=== PATIENT | male | born 1990 | race Caucasian/White ===

== ENCOUNTER 2017-08-12 08:43 | Emergency (ER) | payer BC, OTHER ==
[~2017-08-12] VITALS: Wt 81.8 kg
[2017-08-12] MEDS ORDERED: KETOROLAC 30 MG INJ IV STA (09:52)
[2017-08-12] MEDS ORDERED: DIAZEPAM 5 MG/ML SYG IV ONE (10:00)
--- NOTE | 2017-08-12 11:29 | RADRPT ---
PROCEDURE: XR thoracic Spine. CLINICAL INDICATION: Back pain TECHNIQUE: AP, lateral and swimmer's views of the thoracic spine were obtained. COMPARISON: No prior studies are available for comparison. FINDINGS: There is normal vertebral mineralization and alignment. No acute fracture or subluxation is seen. The disc spaces are normal in appearance. The posterior elements are unremarkable. The soft tissues appear normal. RPTAT: AA IMPRESSION: Unremarkable thoracic spine. .Juan Alberto Evangelista MD, MD Date Time Electronically viewed and signed by .Juan Alberto Evangelista MD, on 08/12/2017 11:29 .S/
--- NOTE | 2017-08-12 11:30 | RADRPT ---
PROCEDURE: XR Lumbar Spine. CLINICAL INDICATION: back pain TECHNIQUE: AP, lateral and cone-down lateral view of the lumbar spine were obtained. COMPARISON: No prior studies are available for comparison. FINDINGS: There is normal vertebral mineralization and alignment. No fracture or subluxation is seen. The disc spaces are normal in appearance. The posterior elements are unremarkable. The soft tissues appear normal. RPTAT: AA IMPRESSION: Unremarkable lumbar spine. .Juan Alberto Evangelista MD, MD Date Time Electronically viewed and signed by .Juan Alberto Evangelista MD, MD on 08/12/2017 11:29 .S/
[2017-08-12] MEDS ORDERED: ONDANSETRON 4 MG INJ IV STA (11:49)
[2017-08-12] MEDS ORDERED: morphine 4 MG/ML VIAL IV STA (11:49)
[2017-08-12 12:20] LABS: BASOPHILS % 0.6 % (0.0-2.0); EOSINOPHILS % 0.5 % (0.0-7.0); HEMATOCRIT 41.9 % (42.0-52.0); HEMOGLOBIN 14.6 g/dl (14.0-18.0); LYMPHOCYTES # 2.3 10^3/ul (0.8-2.9); LYMPHOCYTES % 37.9 % (15.0-51.0); MEAN CORPUSCULAR HEMOGLOBIN 31.1 pg (29.0-33.0); MEAN CORPUSCULAR HGB CONC 34.8 g/dl (32.0-37.0); MEAN CORPUSCULAR VOLUME 89.3 fl (82.0-101.0); MEAN PLATELET VOLUME 9.8 fl (7.4-10.4); MONOCYTE # 0.3 10^3/ul (0.3-0.9); MONOCYTES % 4.7 % (0.0-11.0); NEUTROPHIL # 3.5 10^3/ul (1.6-7.5); PLATELET COUNT 244 10^3/UL (140-415); RED BLOOD COUNT 4.69 10^6/ul (4.70-6.10); RED CELL DISTRIBUTION WIDTH 11.8 % (11.5-14.5); WHITE BLOOD COUNT 6.2 10^3/ul (4.8-10.8)
[2017-08-12 12:45] LABS: ALBUMIN 4.7 g/dl (3.3-4.9); ALBUMIN/GLOBULIN RATIO 1.56; BILIRUBIN,INDIRECT 0.7 mg/dl (0-1.1); BILIRUBIN,TOTAL 0.7 mg/dl (0.2-1.3); CALCIUM 9.6 mg/dl (8.4-10.2); CREATININE 0.95 mg/dl (0.61-1.24); POTASSIUM 4.5 mmol/L (3.5-5.1); TOTAL PROTEIN 7.7 g/dl (6.1-8.1)
[2017-08-12] MEDS ORDERED: IOHEXOL 300MG/ML 150 ML BTL ONE (13:09)
--- NOTE | 2017-08-12 13:46 | RADRPT ---
PROCEDURE: CT Chest, Abdomen and Pelvis with contrast. CLINICAL INDICATION: Pain. TECHNIQUE: Multiple contiguous axial CT images of the chest, abdomen and pelvis were obtained foll owing the administration of 100 cc of Omnipaque-300. Coronal and sagittal reconstructions were also performed. CTDIvol (mGy): 13.93; Total Exam DLP (mGy-cm): 1125.91. One or more of the following dose reduction techniques were utilized: - Automated exposure control. - Adjustment of the mA and/or kV according to patient size. - Use of iterative reconstruction technique. COMPARISON: None. FINDINGS: Limited imaging of the lower neck is unremarkable. The heart is not enlarged. There is no pericardial effusion. There is no mediastinal, hilar or axill xiang lymphadenopathy. The thoracic aorta is normal in caliber. The pulmonary arteries are normal in c aliber. There is no pulmonary consolidation, pleural effusion or pulmonary nodule. The tracheobronchial tree is normal in caliber. The liver and spleen are homogeneous in enhancement. The gallbladder, pancreas and adrenal glands a re unremarkable. The kidneys are symmetric in size and enhancement. There is no hydronephrosis or abnormal perinephr ic inflammation. There are no ureteral stones. The abdominal aorta is normal in caliber. There is no periaortic / retroperitoneal lymphadenopathy. The stomach and small and large intestines are unremarkable. The appendix is normal. There are no focal inflammatory changes of the mesentery. There is no mesenteric lymphadenopathy. There is no a scites. The bladder, prostate and seminal vesicles are unremarkable. There is no free pelvic fluid. There i s no pelvic sidewall or inguinal lymphadenopathy. Skeletal structures are unremarkable. Body wall soft tissues are unremarkable. IMPRESSION: No evidence of mass, lymphadenopathy or acute inflammatory pathology of the chest, abdomen or pelvis . RPTAT: AAQQ .Lakshmi Bonilla MD, MD Date Time Electronically viewed and signed by .Lakshmi Bonilla MD, MD on 08/12/2017 13:46 .T/
[2017-08-12] MEDS ORDERED: IBUP-1542 PO (14:12)
[2017-08-12] MEDS ORDERED: HYDR-906 PO (14:12)
--- NOTE | 2017-08-12 14:28 | ERD ---
ER Documentation Chief Complaint Date/Time DATE: 08/12/17 Chief Complaint Back spasms HPI The patient is a 27-year-old male who presents to the Emergency Department with complaint of back spasms and pain since last night. The patient reports that his pain was [id number], localized to the paraspinal region of the thoracic back, radiating distally down to the lumbar back. The patient took a dose of Advil last night, with only minimal relief. Upon waking up this morning , his pain had worsened. The pain is constant, worse with movement, palpation and ambulation, and is mildly improved at rest. He reports that his pain feels as if his back is "tight" and "with spasms." He rates his current pain as 9/10. The patient denies a history of similar symptoms in the past. Denies recent falls, injury, trauma to the back. Denies recent heavy lifting or new exercise. Denies involvement in motor vehicle collision or any assault. Denies any bowel or bladder disturbances, urinary retention or lower extremity numbness, paresthesias or weakness. Denies saddle-region anesthesia. Denies fevers, sweats , chills, nausea, vomiting, diarrhea, dysuria, hematuria, flank pain. Denies history of IV drug use or immunocompromised state. Denies any steroid use. No other complaints at this time. ROS All systems reviewed and are negative except as per history of present illness. Medications Home Meds Active Scripts Ibuprofen* (Motrin*) 600 Mg Tab, 600 MG PO Q6, #30 TAB Prov:PHOENIX ALFRED PA-C 08/12/17 Hydrocodone/Acetaminophen (Weikert 5-325 Tablet) 1 Each Tablet, 1 EACH PO Q6, #10 TAB Prov:PHOENIX ALFRED PA-C 08/12/17 PMhx/Soc Medical and Surgical Hx: pt denies Medical Hx, pt denies Surgical Hx Hx Alcohol Use: No Hx Substance Use: No Hx Tobacco Use: No Physical Exam Vitals Vital Signs Date Time Temp Pulse Resp B/P Pulse Ox O2 Delivery O2 Flow Rate FiO2 08/12/17 08:47 97.0 82 20 138/74 98 Physical Exam GENERAL: Well-developed, well-nourished, in mild distress secondary to pain. HEENT: Head is normocephalic, atraumatic. No scleral pallor or icterus. Pupils equal, round and reactive to light. Extraocular movements intact. Conjunctiva pink. Moist mucous membranes. NECK: Supple. No masses, no tenderness, no lymphadenopathy. Trachea midline. No nuchal rigidity. Full range of motion. RESPIRATORY: Lungs are clear to auscultation bilaterally. Equal breath sounds. Normal expiratory effort. CARDIOVASCULAR: Regular rate and rhythm. S1 and S2 normal. GASTROINTESTINAL: Abdomen is soft, nontender, and nondistended. No guarding, no rebound tenderness. Normal bowel sounds. No pulsatile abdominal masses. FLANK: No CVA tenderness, no mass or swelling. BACK: Bilateral paraspinal muscle tenderness, with palpable spasm noted. No midline tenderness. No step offs. No crepitus. No deformities. Equal strength to lower extremities. No foot drop. No saddle-region anesthesia. EXTREMITIES: No clubbing, cyanosis, or edema. Normal skin perfusion. Full range of motion of both the upper and lower extremities bilaterally. Muscle tone is normal. No focal swelling or erythema. Distal pulses are palpable, 2+ bilaterally. Capillary refill is less than 2 seconds. NEUROLOGIC: The patient is alert, awake, and oriented x 3. No focal neurologic deficits. Cranial nerves are grossly intact. Motor and sensation grossly intact. INTEGUMENT: Skin is clean, dry and intact. No rashes, lesions or petechiae present. Normal turgor. PSYCHIATRIC: Appropriate; Cooperative. Result Diagram: 08/12/17 1207 08/12/17 1207 Results 24 hrs Laboratory Tests Test 08/12/17 12:07 White Blood Count 6.210^3/ul Red Blood Count 4.6910^6/ul Hemoglobin 14.6g/dl Hematocrit 41.9% Mean Corpuscular Volume 89.3fl Mean Corpuscular Hemoglobin 31.1pg Mean Corpuscular Hemoglobin Concent 34.8g/dl Red Cell Distribution Width 11.8% Platelet Count 72698^3/UL Mean Platelet Volume 9.8fl Neutrophils % 56.0% Lymphocytes % 37.9% Monocytes % 4.7% Eosinophils % 0.5% Basophils % 0.6% Nucleated Red Blood Cells % 0.0/100WBC Neutrophils # 3.510^3/ul Lymphocytes # 2.310^3/ul Monocytes # 0.310^3/ul Eosinophils # 0.010^3/ul Basophils # 0.010^3/ul Nucleated Red Blood Cells # 0.010^3/ul Sodium Level 145mmol/L Potassium Level 4.5mmol/L Chloride Level 106mmol/L Carbon Dioxide Level 28mmol/L Anion Gap 16 Blood Urea Nitrogen 15mg/dl Creatinine 0.95mg/dl Glucose Level 81mg/dl Calcium Level 9.6mg/dl Total Bilirubin 0.7mg/dl Direct Bilirubin 0.00mg/dl Indirect Bilirubin 0.7mg/dl Aspartate Amino Transf (AST/SGOT) 19IU/L Alanine Aminotransferase (ALT/SGPT) 39IU/L Alkaline Phosphatase 80IU/L Total Protein 7.7g/dl Albumin 4.7g/dl Globulin 3.00g/dl Albumin/Globulin Ratio 1.56 Lipase 71U/L Current Medications Medications (Trade) Dose Ordered Sig/Daniel Route PRN Reason Start Time Stop Time Status Last Admin Dose Admin Diazepam (Valium) 5 mg ONCE ONCE IV 08/12/17 10:00 08/12/17 10:01 DC 08/12/17 10:40 Ketorolac Tromethamine (Toradol) 30 mg ONCE STAT IV 08/12/17 09:52 08/12/17 09:53 DC 08/12/17 10:40 Morphine Sulfate (morphine) 4 mg ONCE STAT IV 08/12/17 11:49 08/12/17 11:51 DC 08/12/17 12:17 Ondansetron HCl (Zofran Inj) 4 mg ONCE STAT IV 08/12/17 11:49 08/12/17 11:51 DC 08/12/17 12:17 Iohexol (Omnipaque 300mg/ ml) 150 ml STK-MED ONCE .ROUTE 08/12/17 13:09 08/12/17 13:10 DC 08/12/17 13:25 Procedures/MDM ED COURSE: The patient was stable throughout ED course. I kept the patient informed of laboratory and diagnostic imaging results throughout the ED course. IV access established by nursing staff. 30 mg Toradol IV and 5 mg Diazepam IV ordered. X-ray imaging performed. On reevaluation, the patient reports no new complaints, but states that while his pain has slightly decreased, he continues to be experiencing a lot of discomfort. The case was reviewed and discussed with Dr. Aceves, ED supervising physician, who evaluated the patient bedside. He agree with the plan of care and recommends obtaining laboratory testing and CT imaging. He also recommends administration of Morphine and Zofran. Laboratory testing, CT imaging performed. On reevaluation, the patient reports no new complaints, and much decreased pain. He states that he is very hungry and would like to be discharged home, as he is feeling improved. Dr. Aceves recommends discharge home. DIAGNOSTIC TESTS AND INTERPRETATION: PROCEDURE: XR thoracic Spine. CLINICAL INDICATION: Back pain TECHNIQUE: AP, lateral and swimmer's views of the thoracic spine were obtained. COMPARISON: No prior studies are available for comparison. FINDINGS: There is normal vertebral mineralization and alignment. No acute fracture or subluxation is seen. The disc spaces are normal in appearance. The posterior elements are unremarkable. The soft tissues appear normal. IMPRESSION:Unremarkable thoracic spine. .Juan Alberto Evangelista MD, MD Date Time Electronically viewed and signed by .Juan Alberto Evangelista MD, MD on 08/12/2017 11: 29 PROCEDURE: XR Lumbar Spine. CLINICAL INDICATION: back pain TECHNIQUE: AP, lateral and cone-down lateral view of the lumbar spine were obtained. COMPARISON: No prior studies are available for comparison. FINDINGS: There is normal vertebral mineralization and alignment. No fracture or subluxation is seen. The disc spaces are normal in appearance. The posterior elements are unremarkable. The soft tissues appear normal. IMPRESSION:Unremarkable lumbar spine. .Juan Alberto Evangelista MD, MD Date Time Electronically viewed and signed by .Juan Alberto Evangelista MD, MD on 08/12/2017 11: 29 PROCEDURE: CT Chest, Abdomen and Pelvis with contrast. CLINICAL INDICATION: Pain. TECHNIQUE: Multiple contiguous axial CT images of the chest, abdomen and pelvis were obtained following the administration of 100 cc of Omnipaque-300. Coronal and sagittal reconstructions were also performed. CTDIvol (mGy): 13.93 ; Total Exam DLP (mGy-cm): 1125.91. One or more of the following dose reduction techniques were utilized: - Automated exposure control. - Adjustment of the mA and/or kV according to patient size. - Use of iterative reconstruction technique. COMPARISON: None. FINDINGS: Limited imaging of the lower neck is unremarkable. The heart is not enlarged. There is no pericardial effusion. There is no mediastinal, hilar or axillary lymphadenopathy. The thoracic aorta is normal in caliber. The pulmonary arteries are normal in caliber. There is no pulmonary consolidation, pleural effusion or pulmonary nodule. The tracheobronchial tree is normal in caliber. The liver and spleen are homogeneous in enhancement. The gallbladder, pancreas and adrenal glands are unremarkable. The kidneys are symmetric in size and enhancement. There is no hydronephrosis or abnormal perinephric inflammation. There are no ureteral stones. The abdominal aorta is normal in caliber. There is no periaortic / retroperitoneal lymphadenopathy. The stomach and small and large intestines are unremarkable. The appendix is normal. There are no focal inflammatory changes of the mesentery. There is no mesenteric lymphadenopathy. There is no ascites. The bladder, prostate and seminal vesicles are unremarkable. There is no free pelvic fluid. There is no pelvic sidewall or inguinal lymphadenopathy. Skeletal structures are unremarkable. Body wall soft tissues are unremarkable. IMPRESSION:No evidence of mass, lymphadenopathy or acute inflammatory pathology of the chest, abdomen or pelvis. .Lakshmi Bonilla MD, MD Date Time Electronically viewed and signed by .Lakshmi Bonilla MD, on 08/12/2017 13:46 MEDICAL DECISION MAKING: This is a 27-year-old male presenting to the Emergency Department with back pain/spasms. On physical examination the patient had tenderness to palpation with spasm noted over the paraspinal muscles of the back. He had no saddle-region anesthesia noted. Vital signs were appropriate. He exhibited no altered mental status, neurologic deficits, saddle anesthesia, bowel or bladder disturbances, incontinence, urinary retention, or lower extremity motor or sensory deficits. The differential diagnosis includes, but is not limited to, cauda equina syndrome, epidural abscess, epidural hematoma, osteomyelitis, vertebral fracture, lumbosacral strain, herniated disc, spinal stenosis, nephrolithiasis, osteoarthritis, sciatica, spondylolisthesis, bursitis , fracture, pyelonephritis, abdominal aortic aneurysm, aortic dissection, herpes zoster, radiculopathy, myelopathy, neoplastic disease. No significant abnormalities noted on imaging performed. After rest and administration of medications, the patient reports no new complaints, and decreased pain. Upon my review and interpretation of the patient's presentation, clinical data, and overall ER course, I believe the patient's symptoms are most consistent with back pain and muscle spasms. I doubt cord compression or cauda equina syndrome, as patient is with equal, strong motor in bilateral lower extremities , no bowel/bladder disturbances, incontinence or retention, no saddle- anesthesia. Doubt vertebral fracture, no midline bony tenderness, no history of significant recent trauma. Doubt neoplastic disease, metastases unlikely given no night sweats, systemic symptoms, no risk factors. Doubt epidural abscess, patient is afebrile, with no history of IV drug use and is immunocompetent. Renal/aortic pathology not consistent with patient history or physical examination, no pulsatile abdominal masses, equal pulses bilaterally. Doubt pyelonephritis, no systemic symptoms, no flank pain, no CVA tenderness. Doubt zoster, no vesicular lesions noted. At this time, the patient is in stable condition and therefore can be discharged home with a prescription for Weikert and Ibuprofen and strict return precautions for signs of deteriorating or worsening condition. The patient is advised to follow up with his primary care provider within 2-3 days for reevaluation and further management, or return to the ER sooner for any new or worsening symptoms. I shared my medical decision making and plan with the patient at length and in great detail, and the patient verbally understands and agrees with the plan for further observation and care as an outpatient. At the time of discharge, all questions were answered. Departure Diagnosis: Primary Impression: Back pain Back pain location: back pain in unspecified location Chronicity: unspecified Back pain laterality: bilateral Qualified Code: M54.9 - Bilateral back pain, unspecified back location, unspecified chronicity Additional Impression: Muscle spasm of back Condition: Stable Patient Instructions: Back Pain (Acute Or Chronic), Muscle Spasm Additional Instructions: Call your primary care doctor TOMORROW for an appointment during the next 2-3 days.See the doctor sooner or return here if your condition worsens before your appointment time. PHOENIX ALFRED PA-C Aug 12, 2017 14:12
== END 2017-08-12 14:28 | disposition home or self-care (01) ==
LOC: FTE 08:43
DX: M54.6 Pain in thoracic spine (principal)
CPT/HCPCS: 36415; 71260; 72072; 72100; 74177; 80053; 83690; 85025; 96374; 96375; 99285; J1885; J2270; J2405; J3360; Q9967